=== PATIENT | female | born 1985 | race Caucasian/White ===

== ENCOUNTER 2020-12-25 13:49 | Outpatient (CLI) | payer OTHER, SELFPAY ==
[2020-12-25 14:33] LABS: SARS-CoV-2 Ag Negative (Negative)
== END 2020-12-25 13:50 | disposition home or self-care (01) ==
PROVIDERS: PCP Physician Assistant; Visit Provider Physician Assistant
DX: Z20.822 Contact with and (suspected) exposure to COVID-19 (principal)
CPT/HCPCS: 87426; C9803